=== PATIENT | female | born 1940 | race Caucasian/White ===

== ENCOUNTER 2018-10-21 08:52 | Day surgery (SDC) | payer OTHER ==
[2018-10-21] MEDS: CYCLOPENTOLATE/PHENYLEPH 2 ML OPH OPER (10:10)
[2018-10-21] MEDS: DICLOFENAC 0.1% 2.5 ML OPH OPER (10:11)
[2018-10-21] MEDS: MOXIFLOXACIN 0.5% 3 ML OPH OPER ×2 (10:11→11:30)
[2018-10-21] MEDS ORDERED: TROPICAMIDE 1% 3 ML OPH OPER (10:30)
[2018-10-21] MEDS ORDERED: SOD CHLORIDE 0.9% 1,000 ML IV (10:30)
[2018-10-21] MEDS ORDERED: CARBACHOL 0.01% 1.5 ML OPH INJ (10:37)
[2018-10-21] MEDS ORDERED: NA HYALURONATE/CHONDROITIN 0.5 ML SYG (10:37)
[2018-10-21] MEDS ORDERED: FENTAnyl 50 MCG/ML VIAL (11:02)
[2018-10-21] MEDS ORDERED: MIDAZOLAM 1 MG/ML 2 ML INJ (11:02)
[2018-10-21] MEDS: LIDOCAINE 4% (MPF) 5 ML INJ (11:28)
[2018-10-21] MEDS: CEFAZOLIN 1 GM INJ (11:29)
[2018-10-21] MEDS: DEXAMETHASONE 4 MG/ML 1 ML INJ (11:29)
[2018-10-21] MEDS ORDERED: PROPOFOL 20 ML (11:42)
[2018-10-21] MEDS ORDERED: LIDOCAINE 2% (SDV) 5 ML INJ (11:42)
[2018-10-21] MEDS ORDERED: LABETALOL HCL 20MG INJ IV (12:00)
[2018-10-21] MEDS ORDERED: METOCLOPRAMIDE 10 MG INJ IV (12:00)
[2018-10-21] MEDS ORDERED: DIPHENHYDRAMINE 50 MG INJ IV (12:00)
[2018-10-21] MEDS ORDERED: hydrALAzine 20 MG INJ IV (12:00)
[2018-10-21] MEDS ORDERED: ONDANSETRON 4 MG INJ IV (12:00)
[2018-10-21] MEDS ORDERED: FENTAnyl 50 MCG/ML VIAL IV (12:00)
[2018-10-21] MEDS ORDERED: MEPERIDINE 25 MG INJ IV (12:00)
== END 2018-10-21 13:08 | disposition home or self-care (01) ==
LOC: SDS 08:52
DX: H25.12 Age-related nuclear cataract, left eye (principal); E78.5 Hyperlipidemia, unspecified; I10 Essential (primary) hypertension
CPT/HCPCS: 66984

== ENCOUNTER 2018-12-16 21:01 | Emergency (ER) | payer OTHER ==
[2018-12-16 22:47] LABS: ADD MAN DIFF? NO
[2018-12-16 22:50] LABS: WHITE BLOOD COUNT 11.8 10^3/ul (4.8-10.8)
[2018-12-16 22:50] LABS: BASOPHIL # 0.1 10^3/ul (0.0-0.1); BASOPHILS % 0.6 % (0.0-2.0); EOSINOPHILS # 0.1 10^3/ul (0.0-0.5); EOSINOPHILS % 0.5 % (0.0-7.0); HEMATOCRIT 35.9 % (37.0-47.0); LYMPHOCYTES # 1.1 10^3/ul (0.8-2.9); LYMPHOCYTES % 9.5 % (15.0-51.0); MEAN CORPUSCULAR HEMOGLOBIN 29.6 pg (29.0-33.0); MEAN CORPUSCULAR HGB CONC 33.4 g/dl (32.0-37.0); MEAN CORPUSCULAR VOLUME 88.4 fl (82.0-101.0); MEAN PLATELET VOLUME 11.1 fl (7.4-10.4); MONOCYTE # 0.6 10^3/ul (0.3-0.9); MONOCYTES % 5.4 % (0.0-11.0); NEUTROPHIL # 9.8 10^3/ul (1.6-7.5); NEUTROPHILS % 83.7 % (39.0-77.0); PLATELET COUNT 158 10^3/UL (140-415); RED BLOOD COUNT 4.06 10^6/ul (4.20-5.40); RED CELL DISTRIBUTION WIDTH 12.5 % (11.5-14.5)
[2018-12-16 22:52] LABS: POSITIVE DIFF @See below
[2018-12-16] MEDS: SOD CHLORIDE 0.9% 100 ML (23:03)
[2018-12-16] MEDS: IOHEXOL 100 ML (23:03)
[2018-12-16 23:04] LABS: ADD UMIC YES; UR ASCORBIC ACID NEGATIVE (NEGATIVE); UR BACTERIA FEW /HPF (NONE SEEN); UR BILIRUBIN (Dip) NEGATIVE (NEGATIVE); UR BLOOD (Dip) 1+ mg/dL (NEGATIVE); UR CLARITY CLEAR (CLEAR); UR COLOR STRAW (YELLOW); UR GLUCOSE (Dip) NEGATIVE (NEGATIVE); UR KETONES (Dip) NEGATIVE (NEGATIVE); UR LEUKOCYTE ESTERASE (Dip) NEGATIVE Leu/ul (NEGATIVE); UR NITRITE (Dip) NEGATIVE (NEGATIVE); UR RBC 11 /HPF (0-5); UR SPECIFIC GRAVITY (Dip) 1.013 (1.003-1.030); UR SQUAMOUS EPITHELIAL CELL FEW /HPF (FEW); UR TOTAL PROTEIN (Dip) NEGATIVE (NEGATIVE); UR UROBILINOGEN (Dip) NEGATIVE (NEGATIVE); UR WBC 1 /HPF (0-5)
[2018-12-16 23:06] LABS: ALANINE AMINOTRANSFERASE 14 IU/L (13-69); ALBUMIN 4.3 g/dl (3.3-4.9); ALKALINE PHOSPHATASE 109 IU/L (42-121); ASPARTATE AMINO TRANSFERASE 26 IU/L (15-46); BLOOD UREA NITROGEN 21 mg/dl (7-20); CALCIUM 9.4 mg/dl (8.4-10.2); CARBON DIOXIDE 25 mmol/L (21-31); CHLORIDE 102 mmol/L (97-110); CHOL/HDL RATIO 3.9 RATIO; CHOLESTEROL 170 mg/dl (100-200); CREATININE 0.69 mg/dl (0.44-1.00); GLUCOSE 132 mg/dl (70-220); HDL CHOLESTEROL 43 mg/dl (33-92); LDL CHOLESTEROL,CALCULATED 99 mg/dl; POTASSIUM 4.3 mmol/L (3.5-5.1); TOTAL PROTEIN 7.6 g/dl (6.1-8.1); TRIGLYCERIDES 140 mg/dl (0-149)
[2018-12-16 23:10] LABS: INR 0.88; PT RATIO 0.9
[2018-12-16 23:12] LABS: ANION GAP 9 (5-13); SODIUM 136 mmol/L (135-144)
[2018-12-16 23:16] LABS: AMPHETAMINE/METHAMPHETAMINE Negative (NEGATIVE); BARBITURATES Negative (NEGATIVE); BENZODIAZEPINES Negative (NEGATIVE); CANNABINOIDS Negative (NEGATIVE); COCAINE Negative (NEGATIVE); OPIATES Negative (NEGATIVE)
[2018-12-16 23:17] LABS: TROPONIN-I < 0.012 ng/ml (0.000-0.120)
[2018-12-16 23:19] LABS: HEMOGLOBIN A1C 5.5 % (0-5.9)
[2018-12-16] MEDS: SOD CHLORIDE 0.9% 500 ML IV (23:25)
[2018-12-17] MEDS: KETOROLAC 15 MG INJ IV (00:46)
[2018-12-17] MEDS: LORAZEPAM 2 MG INJ IV (01:02)
[2018-12-17 07:01] LABS: PARTIAL THROMBOPLASTIN TIME 28.1 Sec (23.0-35.0)
== END 2018-12-17 03:05 | disposition home or self-care (01) ==
LOC: E/R 21:01
DX: R51 Headache (principal); R40.2252 Coma scale, best verbal response, oriented, at arrival to emergency department; R40.2362 Coma scale, best motor response, obeys commands, at arrival to emergency department; R40.2142 Coma scale, eyes open, spontaneous, at arrival to emergency department; I10 Essential (primary) hypertension; Z79.82 Long term (current) use of aspirin; Z86.73 Personal history of transient ischemic attack (TIA), and cerebral infarction without residual deficits
CPT/HCPCS: 36415; 70450; 70496; 70498; 71045; 80053; 80061; 80307; 81001; 82962; 83036; 84484; 85025; 85610; 85730; 93005; 96374; 96375; 99285-25